=== PATIENT | female | born 1970 | race Caucasian/White ===

== ENCOUNTER 2022-05-24 08:52 | Inpatient (IN) | payer OTHER ==
[2022-05-24] MEDS ORDERED: Sodium Chloride 0.9% 10 ML Syringe FLUSH PRN ×2 (09:15→10:25)
[2022-05-24] MEDS ORDERED: Ondansetron 4 MG/2 ML SDV IVPUSH ONE (09:15)
[2022-05-24] MEDS: Sodium Chloride 0.9% 1,000 ML IV SCH ×3 (09:29→23:45)
[2022-05-24] MEDS ORDERED: HYDROmorphone 1 MG/ML Syringe IVPUSH ONE (09:42)
[2022-05-24] MEDS ORDERED: Dextrose 5%-0.9% NaCl 1,000 ML IV SCH (09:45)
[2022-05-24] MEDS ORDERED: Iopamidol 612 MG/ML 100 ML Bottle IVPUSH ONE (10:25)
[2022-05-24] MEDS ORDERED: Levofloxacin/Dextrose 5%-Water 750 MG in Premix Bag 1 BAG IV ONE (12:05)
[2022-05-24] MEDS ORDERED: metroNIDAZOLE/Normal Saline 500 MG in Premix Bag 1 BAG IV ONE (12:06)
[2022-05-24] MEDS ORDERED: Metoclopramide 10 MG/2 ML SDV IVPUSH ONE (12:30)
[2022-05-24] MEDS ORDERED: Ondansetron 4 MG/2 ML SDV IV PRN (14:00)
[2022-05-24] MEDS ORDERED: Morphine 2 MG/ML SYRINGE IVPUSH PRN (14:00)
[2022-05-24] MEDS: Enoxaparin 40 MG/0.4 ML Syringe SUBCUT SCH (16:04)
[2022-05-24] MEDS: metroNIDAZOLE/Normal Saline 500 MG in Premix Bag 1 BAG IV SCH (20:40)
[2022-05-25] MEDS: metroNIDAZOLE/Normal Saline 500 MG in Premix Bag 1 BAG IV SCH ×3 (04:05→21:23)
[2022-05-25] MEDS: Sodium Chloride 0.9% 1,000 ML IV SCH (06:39)
[2022-05-25] MEDS ORDERED: Morphine 2 MG/ML SYRINGE IVPUSH PRN (06:54)
[2022-05-25] MEDS: Potassium Chloride 10 MEQ in Premix Bag 1 BAG IV SCH ×10 (08:13→21:24)
[2022-05-25] MEDS: Enoxaparin 40 MG/0.4 ML Syringe SUBCUT SCH (08:16)
[2022-05-25] MEDS ORDERED: Sodium Chloride 0.9% 1,000 ML IV SCH (09:45)
[2022-05-25] MEDS: Levofloxacin/Dextrose 5%-Water 500 MG in Premix Bag 1 BAG IV SCH (11:04)
[2022-05-25] MEDS ORDERED: Benzocaine 20% Topical Spray UD MUCMEM ONE (14:24)
[2022-05-25] MEDS ORDERED: Benzocaine 20% Topical Spray UD MUCMEM PRN (14:40)
[2022-05-25] MEDS ORDERED: Dextrose 5%-Lact Ringers w/KCl 1,000 ML IV SCH (15:00)
[2022-05-26] MEDS: metroNIDAZOLE/Normal Saline 500 MG in Premix Bag 1 BAG IV SCH ×2 (04:18→12:31)
[2022-05-26] MEDS: Enoxaparin 40 MG/0.4 ML Syringe SUBCUT SCH (08:57)
[2022-05-26] MEDS: Levofloxacin/Dextrose 5%-Water 500 MG in Premix Bag 1 BAG IV SCH (11:27)
== END 2022-05-26 14:58 | disposition home or self-care (01) | DRG 392 ==
LOC: JD.ED 08:52 → JD.MS 13:29
PROVIDERS: ADMIT Internal Medicine; ATTEND Internal Medicine
DX: K57.32 Diverticulitis of large intestine without perforation or abscess without bleeding (principal); K56.7 Ileus, unspecified; H54.7 Unspecified visual loss; Z86.16 Personal history of COVID-19
CPT/HCPCS: 36410; 36415; 71045; 71045-26; 74018; 74018-26; 74177; 74177-26; 80053; 81001; 83690; 83735; 85025; 86140; 96361; 96365; 96368; 96375; 99284; 99285-25; A9270-GY; J1170; J1650; J1956; J2405; J2765; J3480; J3490; J7030; J7042; Q9967